=== PATIENT | male | born 1995 | race American Indian/Alaskan Native ===

== ENCOUNTER 2018-12-28 06:22 | Emergency (ER) | payer SELFPAY ==
[2018-12-28 07:27] LABS: Basophils # (Auto) 0.1 K/mm3 (0.0-0.1); Basophils % (Auto) 0.5 % (0.0-1.8); Eosinophils # (Auto) 0.1 K/mm3 (0.0-0.4); Eosinophils % (Auto) 0.8 % (0.0-4.3); Hemoglobin 15.5 gm/dl (11.8-15.2); Lymphocytes # (Auto) 1.3 K/mm3 (1.2-5.4); Lymphocytes % (Auto) 13.2 % (13.4-35.0); Mean Corpuscular HGB Conc 32 % (32-34); Mean Corpuscular Volume 85 fl (84-94); Monocytes # (Auto) 0.8 K/mm3 (0.0-0.8); Monocytes % (Auto) 7.5 % (0.0-7.3); Red Blood Count 5.78 M/mm3 (3.65-5.03); Red Cell Distribution Width 13.9 % (13.2-15.2)
[2018-12-28 07:39] LABS: Bilirubin,Urine NEG (Negative); Blood,Urine SM (Negative); Color,Urine Yellow (Yellow); Mucus,Urine FEW /HPF
[2018-12-28 07:50] LABS: Alanine Aminotransferase 10 units/L (7-56); Albumin 5.2 g/dL (3.9-5); BUN/Creatinine Ratio 11; Blood Urea Nitrogen 10 mg/dL (9-20); Calcium 9.8 mg/dL (8.4-10.2); Hemolysis Index 13
[2018-12-28 08:19] LABS: Platelet Count 240 K/mm3 (140-440)
[2018-12-28] MEDS ORDERED: NACL 0.9% 1000 ML 1,000 ML IV ONE (08:22)
--- NOTE | 2018-12-28 08:23 | Emergency Department Report ---
ED Dizziness HPI - General Chief Complaint: Syncope Stated Complaint: DIABETIC EPISODE Time Seen by Provider: 12/28/18 08:19 Source: patient Mode of arrival: Stretcher Limitations: No Limitations - History of Present Illness Initial Comments: Patient is a 23-year-old male that just emergency room with complaints of lightheaded and dizziness. Patient states he had a near-syncopal episode. Per states he was going to work. Patient states he's had a little bit of abdominal cramping and nausea and vomiting. Patient states he vomited this morning. Jimmy bills states his abdominal pain is generalized. Patient states intermittent. Patient states right now it is a 4 out of 10. Patient states that abdominal pain is better with rest and worse with movement. Patient denies loss of consciousness. Patient states he did not lose consciousness during entire episode but was extremely lightheaded and dizzy. MD Complaint: dizziness, lightheadedness, near syncope -: Sudden Timing: sudden onset Description: lightheadedness, near-syncope History of Same: No History of Trauma: No Severity: severe Improves With: rest Worsens With: movement, exertion Associated Symptoms: denies: ataxia, chest pain, confusion, cough, diaphoresis, fever/chills, loss of appetite, rash, seizure, shortness of breath, syncope, weakness - Related Data Previous Rx's Medication Instructions Recorded Last Taken Type Ondansetron [Zofran Odt] 4 mg PO Q6HR PRN #15 tab.rapdis 12/28/18 Unknown Rx Allergies Allergy/AdvReac Type Severity Reaction Status Date / Time No Known Allergies Allergy Verified 12/28/18 08:27 ED Review of Systems ROS: Stated complaint: DIABETIC EPISODE Other details as noted in HPI Constitutional: denies: chills, fever Eyes: denies: eye pain, eye discharge, vision change ENT: denies: ear pain, throat pain Respiratory: denies: cough, shortness of breath, wheezing Cardiovascular: denies: chest pain, palpitations Endocrine: no symptoms reported Gastrointestinal: abdominal pain, nausea, vomiting. denies: diarrhea Genitourinary: denies: urgency, dysuria Musculoskeletal: denies: back pain, joint swelling, arthralgia Skin: denies: rash, lesions Neurological: denies: headache, weakness, paresthesias Psychiatric: denies: anxiety, depression Hematological/Lymphatic: denies: easy bleeding, easy bruising ED Past Medical Hx - Past Medical History Previous Medical History?: Yes Hx Diabetes: Yes (borderline dm) - Surgical History Past Surgical History?: No - Social History Smoking Status: Never Smoker Substance Use Type: None - Medications Home Medications: Home Medications Medication Instructions Recorded Confirmed Last Taken Type Ondansetron [Zofran Odt] 4 mg PO Q6HR PRN #15 tab.rapdis 12/28/18 Unknown Rx ED Physical Exam - General Limitations: No Limitations General appearance: alert, in no apparent distress - Head Head exam: Present: atraumatic, normocephalic - Eye Eye exam: Present: normal appearance, PERRL Pupils: Present: normal accommodation - ENT ENT exam: Present: mucous membranes dry - Neck Neck exam: Present: normal inspection - Respiratory Respiratory exam: Present: normal lung sounds bilaterally. Absent: respiratory distress, wheezes, rales - Cardiovascular Cardiovascular Exam: Present: regular rate, normal rhythm. Absent: systolic murmur, diastolic murmur, rubs, gallop - GI/Abdominal GI/Abdominal exam: Present: soft, normal bowel sounds. Absent: distended, tenderness, guarding - Rectal Rectal exam: Present: deferred - Extremities Exam Extremities exam: Present: normal inspection - Back Exam Back exam: Present: normal inspection - Neurological Exam Neurological exam: Present: alert, oriented X3 - Psychiatric Psychiatric exam: Present: normal affect, normal mood - Skin Skin exam: Present: warm, dry, intact, normal color. Absent: rash ED Course Vital Signs 12/28/18 12/28/18 12/28/18 06:48 08:25 10:27 Temperature 98 F Pulse Rate 79 70 Respiratory 16 16 Rate Blood Pressure 130/87 Blood Pressure 122/77 [Left] O2 Sat by Pulse 100 98 99 Oximetry - Reevaluation(s) Reevaluation #1: Patient states she is feeling better. Patient denies dizziness. Patient denies lightheadedness. Patient able to her in ER. Patient tolerated by mouth intake. I discussed all results with patient. Patient is stable for discharge. Patient will be discharged home. Patient agrees with plan of care. Patient given discharge instructions. Patient voiced understanding discharge instructions. 12/28/18 09:49 ED Medical Decision Making - Lab Data Result diagrams: 12/28/18 07:10 12/28/18 07:10 - EKG Data -: EKG Interpreted by Me EKG shows normal: sinus rhythm, axis, intervals, QRS complexes, ST-T waves Rate: normal - Medical Decision Making Patient is a 23 year old male patient presented to the emergency room with complaints of near syncope, dizziness, lightheadedness and nausea vomiting. Patient's clinical findings consistent with gastroenteritis, viral origin. Patient given fluids and antiemetics. Patient tolerated by mouth challenge. Patient able to ambulate in the ER without difficulty. Patient given fluids. Patient's vital signs stable throughout his stay. Patient's labs unremarkable. Patient discharged home. Patient stable for discharge. Patient given discharge instructions. Patient was asymptomatic prior to discharge. Patient responded well to therapy. - Differential Diagnosis gastroenteritis, nausea, vomiting, near-syncope, dizziness Critical care attestation.: If time is entered above; I have spent that time in minutes in the direct care of this critically ill patient, excluding procedure time. ED Disposition Clinical Impression: Dehydration, Gastroenteritis, Near syncope, Dizziness, Lightheadedness Nausea & vomiting Qualifiers: Vomiting type: unspecified Vomiting Intractability: non-intractable Qualified Code(s): R11.2 - Nausea with vomiting, unspecified Disposition: DC- TO HOME OR SELFCARE Is pt being admited?: No Does the pt Need Aspirin: No Condition: Stable Instructions: Traveler's Diarrhea (ED), Gastroenteritis (ED), Acute Nausea and Vomiting (ED), Near Syncope (ED), Lightheadedness (ED), Dizziness (ED) Additional Instructions: Patient to follow up with primary care in 2-3 days. Patient to return to ER if condition worsens. Patient to take meds as directed. Patient increase water. Patient to eat a BRAT diet. Patient to take Tylenol or ibuprofen when necessary for pain Prescriptions: Ondansetron [Zofran Odt] 4 mg PO Q6HR PRN #15 tab.rapdis PRN Reason: Nausea And Vomiting Referrals: LUZ CALERO MD [Primary Care Provider] - 3-5 Days Time of Disposition: 09:42
[2018-12-28] MEDS ORDERED: ZOFRAN IV ONE (08:26)
[2018-12-28 10:28] VITALS: BP 122/77
== END 2018-12-28 10:28 | disposition home or self-care (01) ==
LOC: ED 06:22
DX: K52.9 Noninfective gastroenteritis and colitis, unspecified (principal); E86.0 Dehydration; R55 Syncope and collapse; E11.9 Type 2 diabetes mellitus without complications
CPT/HCPCS: 36415; 80053; 81001; 82962; 85025; 93005; 93010; 96361; 96374; 99284; J2405; J7030